=== PATIENT | female | born 1960 | race Caucasian/White ===

== ENCOUNTER → 2018-01-06 | Outpatient (CLI) | payer OTHER ==
--- NOTE | 2018-01-09 15:02 | MM ---
Reason for exam: screening (asymptomatic). Last mammogram was performed 3 years and 7 months ago. History: Family history of breast cancer in mother at age 55 and breast cancer in maternal aunt at age 53. Benign cyst aspiration of both breasts. 2 benign excisional biopsies of the right breast. Physical Findings: A clinical breast exam by your physician is recommended on an annual basis and results should be correlated with mammographic findings. MG Screening Mammo w CAD Bilateral CC and MLO view(s) were taken. Prior study comparison: June 12, 2014, bilateral MG diagnostic mammo w CAD [facility]. April 16, 2013, CAD bilateral diagnostic mammogram. The breast tissue is heterogeneously dense. This may lower the sensitivity of mammography. Finding: There is a high spiculated architectural distortion in the middle position of the right breast on CC view. New finding since June 12, 2014 and April 16, 2013. ASSESSMENT: Incomplete: need additional imaging evaluation, BI-RAD 0 RECOMMENDATION: Special view mammogram of the right breast. If lesion persists on supplemental views, image directed ultrasound is recommended. [facility] will attempt to contact patient to return for supplemental views and ultrasound if indicated.
== END | disposition home or self-care (01) ==
LOC: RADMAMWWP 09:48
PROVIDERS: ATTEND Surgery
DX: Z12.31 Encounter for screening mammogram for malignant neoplasm of breast (principal)
CPT/HCPCS: 77067

== ENCOUNTER → 2018-01-23 | Outpatient (CLI) | payer OTHER ==
--- NOTE | 2018-01-23 09:20 | MM ---
Reason for exam: additional evaluation requested from abnormal screening. Last mammogram was performed 1 month ago. History: Family history of breast cancer in mother at age 55 and breast cancer in maternal aunt at age 53. Benign cyst aspiration of both breasts. 2 benign excisional biopsies of the right breast. Physical Findings: Nurse did not find any significant physical abnormalities on exam. MG Work Up Mamm w CAD RT Spot compression CC, spot compression MLO, and ML view(s) were taken of the right breast. Prior study comparison: January 06, 2018, bilateral MG screening mammo w CAD. June 12, 2014, bilateral MG diagnostic mammo w CAD [facility]. The breast tissue is heterogeneously dense. This may lower the sensitivity of mammography. Benign calcifications in the right breast. The previously seen asymmetry on CC view appears retrospectively unchanged from 2013. No suspicious finding. These results were verbally communicated with the patient and result sheet given to the patient on 01/23/18. ASSESSMENT: Benign, BI-RAD 2 RECOMMENDATION: Return to routine screening mammogram schedule for both breasts.
== END | disposition home or self-care (01) ==
LOC: RADMAMWWP 08:00
PROVIDERS: ATTEND Surgery
DX: R92.8 Other abnormal and inconclusive findings on diagnostic imaging of breast (principal)
CPT/HCPCS: 77065

== ENCOUNTER → 2020-09-15 | Outpatient (CLI) | payer OTHER ==
--- NOTE | 2020-09-15 16:12 | XR ---
EXAMINATION TYPE: XR chest 2V DATE OF EXAM: 09/15/2020 COMPARISON: Chest x-ray dated 11/03/2012 HISTORY: Nicotine dependence, asthma TECHNIQUE: Frontal and lateral views of the chest are obtained on 3 images. FINDINGS: There is no focal air space opacity, pleural effusion, or pneumothorax seen. The cardiac silhouette size is within normal limits, stable. Distal acromion shows a stable appearance, possible remodeling or prior surgery, correlate for appropriate history. The osseous structures are intact. IMPRESSION: No acute cardiopulmonary process.
== END ==
LOC: RADXRYALE 14:56
PROVIDERS: ATTEND Physician Assistant Medical
DX: J45.909 Unspecified asthma, uncomplicated (principal); F17.200 Nicotine dependence, unspecified, uncomplicated
CPT/HCPCS: 71046

== ENCOUNTER → 2022-12-08 | Outpatient (CLI) | payer OTHER ==
--- NOTE | 2022-12-09 10:06 | MM ---
Reason for Exam: Screening (asymptomatic). Last mammogram was performed 4 year(s) and 11 month(s) ago. Patient History: Menarche at age 10. First Full-Term at age 21. Hysterectomy at age 33. Postmenopausal. Patient has history of breast feeding. Benign Excisional Biopsy on the right side. Benign Excisional Biopsy on the right side. Bilateral Benign Cyst Aspiration. Maternal aunt had breast cancer, age 53. Mother had breast cancer, age 55. Risk Values: Natasha 5 year model risk: 4.6%. NCI Lifetime model risk: 17.5%. Prior Study Comparison: 06/12/2014 Bilateral Diagnostic Mammogram, [facility]. 01/06/2018 Bilateral Screening Mammogram, [facility]. 01/23/2018 Right Diagnostic Mammogram, [facility]. Tissue Density: The breast tissue is heterogeneously dense. This may lower the sensitivity of mammography. Findings: Analyzed By CAD. Benign-appearing calcifications bilateral breasts. Stable appearance of the fibroglandular tissues. There is no suspicious group of microcalcifications or new suspicious mass in either breast. Overall Assessment: Benign, BI-RAD 2 Management: Screening Mammogram of both breasts in [address] [facility] will attempt to contact patient to return for supplemental views and ultrasound if indicated. Patient should continue monthly self-breast exams. A clinical breast exam by your physician is recommended on an annual basis. This exam should not preclude additional follow-up of suspicious palpable abnormalities. Note on Natasha scores and lifetime risk: 1. A Natasha score greater than 3% is considered moderate risk. If this is the case, consider specialist referral to assess eligibility for a risk reducing agent. 2. If overall lifetime risk for the development of breast cancer is 20% or higher, the patient may qualify for future screening with alternating mammogram and breast MRI. Electronically signed and approved by: Turner St DO
== END | disposition home or self-care (01) ==
LOC: RADMAMWWP 06:56
PROVIDERS: ATTEND Family Medicine
DX: Z12.31 Encounter for screening mammogram for malignant neoplasm of breast (principal); Z78.0 Asymptomatic menopausal state; Z80.3 Family history of malignant neoplasm of breast
CPT/HCPCS: 77063; 77067

== ENCOUNTER → 2023-12-14 | Outpatient (CLI) | payer OTHER ==
--- NOTE | 2023-12-15 11:58 | MM ---
Reason for Exam: Screening (asymptomatic). Last screening mammogram was performed 12 month(s) ago. Patient History: Menarche at age 10. First Full-Term at age 21. Hysterectomy at age 33. Postmenopausal. Patient has history of breast feeding. Benign Excisional Biopsy on the right side. Benign Excisional Biopsy on the right side. Bilateral Benign Cyst Aspiration. Maternal aunt had breast cancer, age 53. Mother had breast cancer, age 55. Risk Values: Natasha 5 year model risk: 4.7%. NCI Lifetime model risk: 17.0%. Prior Study Comparison: 01/06/2018 Bilateral Screening Mammogram, [facility]. 01/23/2018 Right Diagnostic Mammogram, [facility]. 12/08/2022 Bilateral MG 3D screening mammo w/cad, [facility]. Tissue Density: The breasts are heterogeneously dense, which may obscure small masses. Findings: Analyzed By CAD. There is no suspicious group of microcalcifications or new suspicious mass in either breast. Chronic nodularity stable bilaterally. Benign-appearing calcifications noted. Overall Assessment: Benign, BI-RAD 2 Management: Screening Mammogram of both breasts in 1 year. . Patient should continue monthly self-breast exams. A clinical breast exam by your physician is recommended on an annual basis. This exam should not preclude additional follow-up of suspicious palpable abnormalities. Note on Natasha scores and lifetime risk: 1. A Natasha score greater than 3% is considered moderate risk. If this is the case, consider specialist referral to assess eligibility for a risk reducing agent. 2. If overall lifetime risk for the development of breast cancer is 20% or higher, the patient may qualify for future screening with alternating mammogram and breast MRI. Electronically signed and approved by: Pierre Graves M.D. Radiologis
== END | disposition home or self-care (01) ==
LOC: RADMAMWWP 07:45
PROVIDERS: ATTEND Family Medicine
DX: Z12.31 Encounter for screening mammogram for malignant neoplasm of breast (principal); Z80.3 Family history of malignant neoplasm of breast; Z78.0 Asymptomatic menopausal state
CPT/HCPCS: 77063; 77067

== ENCOUNTER → 2024-07-23 | Outpatient (CLI) | payer OTHER ==
--- NOTE | 2024-07-23 10:45 | XR ---
EXAMINATION TYPE: XR lumbosacral spine 5V, XR Hip Complete 2 views LT DATE OF EXAM: 07/23/2024 10:10 AM COMPARISON: None CLINICAL INDICATION: Female, 64 years old with history of [id number] LT HIP PAIN, SCIATIC PAIN, , FINDINGS: Lumbar spine: Hypertrophic facet arthropathy especially mid to lower lumbar spine. Degenerative trace grade 1 retro listhesis L1-L2 and L2-L3. Trace grade 1 anterolisthesis L4-L5. Mild multilevel degenerative disc dis ease with mild disc space narrowing and bulging discs. More moderate degenerative disc disease L1-L2. Vertebral body heights are preserved. No pars interarticularis defects seen. Left hip: There is moderate degenerative change of the left hip with axial joint space narrowing and marginal s purring. No acute fracture, subluxation, or dislocation. IMPRESSION: Lumbar spine: 1. Advanced hypertrophic facet arthropathy especially mid to lower lumbar spine. 2. Degenerative grade 1 spondylolistheses L1-L2, L2-L3, and L4-L5. 3. Mild multilevel degenerative disc disease, more moderate at L1-L2. Left hip: 4. Moderate left hip OA. 5. No acute osseous abnormality seen. [facility], Workstation: [facility], 07/23/2024 10:43 AM
== END | disposition home or self-care (01) ==
LOC: RADXRYALE 09:51
PROVIDERS: ATTEND Physician Assistant Medical
DX: M16.0 Bilateral primary osteoarthritis of hip (principal); M54.32 Sciatica, left side
CPT/HCPCS: 72110; 73502

== ENCOUNTER → 2025-01-07 | Outpatient (CLI) | payer OTHER ==
--- NOTE | 2025-01-07 13:40 | MR ---
EXAMINATION TYPE: MR lumbar spine wo con DATE OF EXAM: 01/07/2025 7:06 AM COMPARISON: Most recent available plain film dated 07/23/2024, MRI dated 07/09/2011 CLINICAL INDICATION: Female, 64 years old with history of M51.362,N39.492, Low back pain into Left bu ttocks x4 months, episodes of incontinence TECHNIQUE: Multiplanar, multisequence images of the lumbar spine were acquired. IV Contrast: mL (None, if empty) FINDINGS: Cord ends at the L1-L2 level. L5-S1: Right paracentral disc bulge is moderate anterior thecal sac compression. Some exiting right S 1 nerve root contact may be present. No AP spinal canal stenosis is present. Facet hypertrophy is pr esent. Neural foramen are patent L4-L5: Facet hypertrophy and ligamentum flavum laxity has posterior lateral thecal sac impression. N o spinal canal stenosis is present. Neural foramen are patent. L3-L4: No focal disc herniation or significant disc bulge. Mild facet hypertrophy is present with po sterior lateral thecal sac contact. No spinal canal stenosis is evident. Neural foramen are patent. L2-L3: Broad-based disc bulge has mild anterior thecal sac contact. No spinal canal stenosis is prese nt. Mild posterior lateral thecal sac compression from ligamentum flavum laxity is present. L1-L2: No focal disc herniation or significant disc bulge. No spinal canal stenosis. Neural foramen are patent. Modic type I endplate changes may be present anteriorly. Degenerative disc changes and disc space narrowing is present through this level, present on plain film and not present in 2011 MRI . T12-L1: No focal disc herniation or significant disc bulge. No spinal canal stenosis. Neural forame n are patent. T11-T12: No focal disc herniation or significant disc bulge. No spinal canal stenosis. Neural daniella en are patent. This is an interval change from the comparison plain films of July 2024. T11: There is diminished signal on T1-weighted sequences. This has diffuse increased signal throughou t the vertebral body on inversion recovery weighted sequences. An acute superior endplate compression deformity likely present. IMPRESSION: 1. Superior endplate compression of T11 with approximately 30% loss of superior vertebral body height may be acute. Correlate with the patient's symptoms. 2. Chronic appearing degenerative disc change L1-L2 [facility], , 01/07/2025 1:37 PM
== END | disposition home or self-care (01) ==
LOC: RADMRIMAIN 06:22
PROVIDERS: ATTEND Family Medicine
DX: M51.362 Other intervertebral disc degeneration, lumbar region with discogenic back pain and lower extremity pain (principal); N39.492 Postural (urinary) incontinence; S22.080A Wedge compression fracture of T11-T12 vertebra, initial encounter for closed fracture
CPT/HCPCS: 72148